=== PATIENT | male | born 1950 | race Caucasian/White ===

== ENCOUNTER 2025-01-08 09:05 | Observation (INO) ==
--- NOTE | 2025-01-02 10:46 | Anesthesiology Consultation ---
Date of Service January 02, 2025 Assessment & Plan Chart Review Chart Review: Acceptable Risk for Surgery and Patient NOT seen in Pre Admission Testing -BMP to be repeated AM of surgery Infectious Disease screening: Per PAT nursing assessment on 12/28/24, No known infectious disease contacts in past 10 days or current infectious disease symptoms. No recent travel outside the country. History Surgery Operation Date: 01/08/25 13:20 Proposed Procedures p Cystolithopaxy - Zeus Rodriguez MD s Transurethral Resection Prostate - Zeus Rodriguez MD Height/Weight Height: 5 ft 8 in Weight: 82.554 kg Allergies Allergy/AdvReac Type Severity Reaction Status Date / Time atorvastatin Allergy Mild SOB, FAST Verified 12/28/24 15:04 HEART AT BEDTIME naproxen Allergy Mild SOB, FAST Verified 12/28/24 15:04 HEART BEAT AND WOULD WAKE UP AT NIGHT pravastatin Allergy Mild SOB, FAST Verified 12/28/24 15:04 HEART BEAT -IT WOULD WAKE HIM UP AT NIGHT hay fever Allergy Intermediate Uncoded 12/28/24 15:04 Medications Home Medications Medication Instructions Recorded Confirmed Last Taken aspirin 81 mg capsule 81 mg PO DAILY 01/02/24 12/28/24 Unknown coQ10 (ubiquinol) 100 mg capsule 100 mg PO DAILY 01/02/24 12/28/24 Unknown (Qunol Delbert CoQ10) losartan 25 mg tablet 25 mg PO HS 01/02/24 12/28/24 Unknown omega 4-yvn-vpw-fish oil 300 1 cap PO BID 01/02/24 12/28/24 Unknown mg-1,000 mg capsule (Fish Oil) doxycycline hyclate 20 mg tablet 20 mg PO BID PRN tick bites 10/09/24 12/28/24 Unknown rosuvastatin 10 mg tablet 10 mg PO HS 10/09/24 12/28/24 Unknown vitamin K2 100 mcg capsule 100 mcg PO HS 10/09/24 12/28/24 Unknown acetaminophen 500 mg tablet 500 mg PO Q6H PRN Pain 12/28/24 12/28/24 Unknown amoxicillin 500 mg tablet 2,000 mg PO UD PRN dental 12/28/24 12/28/24 Unknown procedures cetirizine 10 mg tablet 10 mg PO DAILY PRN Allergy Symptoms 12/28/24 12/28/24 Unknown cholecalciferol (vitamin D3) 25 25 mcg PO Q2D 12/28/24 12/28/24 Unknown mcg (1,000 unit) capsule (Vitamin D3) cholecalciferol (vitamin D3) 50 100 mcg PO HS 12/28/24 12/28/24 Unknown mcg (2,000 unit) capsule (Vitamin D3) cyanocobalamin (vitamin B-12) 1,000 mcg PO DAILY 12/28/24 12/28/24 Unknown 1,000 mcg tablet (Vitamin B-12) febuxostat 40 mg tablet (Uloric) 40 mg PO QAM 12/28/24 12/28/24 Unknown gemfibrozil 600 mg tablet 600 mg PO BID 12/28/24 12/28/24 Unknown Past Medical History Medical History (Updated 01/02/25 @ 10:40 by Hailee Brown PA-C) Brain fog ~2019, "evaluated in the ER a couple times for this, within 3 week period, found to be from dehydration" Calcium nephrolithiasis hx CKD (chronic kidney disease), stage III Enlarged prostate History of hypertension Hx of acute renal failure ~2015, "due to urinary retention from his enlarged prostate"; resolved with TURP; following with urology Hx of gout Hx of hyperlipidemia statin intolerance MGUS (monoclonal gammopathy of unknown significance) (per nephro note) Prediabetes diet controlled; has lost almost 20lb since 08/2024 Slow to wake up after anesthesia ~2014, [facility], "felt extremely groggy and had a hard time waking up" Past Surgical History Surgical History (Updated 01/02/25 @ 10:40 by Hailee Brown PA-C) History of colonoscopy Hx of knee surgery left knee, to removed "floating cartilege" Hx of tonsillectomy age 3 Hx of transurethral resection of prostate ~2015, [facility] Social History Smoking Status: Never smoker Do You Dip or Chew Tobacco: No Hx Alcohol Use: Yes (none for years) Hx Substance Use: No substance use type: does not use Lab Results Anesthesia Preop Results Results Anesthesia Widget: Urine Appearance Clear 12/06/24 Testing Laboratory Results 12/27/24: WBC: 5.78 H/H: 14.1/42.0 PLATELETS: 292 SODIUM: 142 POTASSIUM: 3.5 CHLORIDE: 110 CO2: 26.1 BUN: 27.7(H) CREATININE: 1.82(H) GLUCOSE: 132 eGFR: 38(L) 12/06/24: UA: -nitrite, trace LE urine culture: no growth Electrocardiogram Date: 12/24/24 Findings: + SB @ (54bpm) Chest X-Ray Date: 12/24/24 Findings: + NAD
[2025-01-08] MEDS: LR 15ML/HR IV SCH (09:35)
[2025-01-08 10:13] LABS: Anion Gap 12.0 (3-11); Blood Urea Nitrogen 35.0 mg/dl (6-23); Calcium 10.4 mg/dl (8.6-10.3); Carbon Dioxide 21.0 mmol/L (21-32); Chloride 112.0 mmol/L (98-107); Creatinine Clr Calc Pharmacy 30.9 ml/min; Glucose 121.0 mg/dl (70-99(Fasting)); Potassium 3.7 mmol/L (3.5-5.1); Sodium 145.0 mmol/L (136-145)
[2025-01-08] MEDS ORDERED: DEXAMETHASONE SOD INJ 4 MG/ML VIAL ONE (10:13)
[2025-01-08] MEDS ORDERED: PROPOFOL IV EMULSION 10 MG/ML 20 ML VIAL IV ONE (10:13)
[2025-01-08] MEDS ORDERED: ONDANSETRON INJ 2 MG/ML 2 ML VIAL ONE (10:13)
[2025-01-08] MEDS ORDERED: MIDAZOLAM HCL 1 MG/ML 2ML VIAL ONE (10:13)
[2025-01-08] MEDS ORDERED: LIDOCAINE 2% 2 ML VIAL/AMP(20MG/ML) INFIL ONE (10:13)
[2025-01-08] MEDS ORDERED: ONDANSETRON INJ 2 MG/ML 2 ML VIAL IV PRN (10:39)
[2025-01-08] MEDS ORDERED: ATROPINE SULFATE 0.1 MG/ML 10ML SYR IV PRN (10:39)
--- NOTE | 2025-01-08 10:44 | History & Physical Report ---
Date of Service January 08, 2025 Assessment & Plan (1) Urinary retention due to benign prostatic hyperplasia: (2) Bladder calculi: Plan Cystolithalopaxy and TURP risks, benefits, and expectations reviewed History of Present Illness Primary Care Provider: Alec Tamayo, Pt with a history of prior urinary retention and associated renal failure has now developed bladder calculi and some recurrent hydro presenting today to address the bladder stones and further resect his prostate Allergies Allergy/AdvReac Type Severity Reaction Status Date / Time atorvastatin Allergy Mild SOB, FAST Verified 01/08/25 10:05 HEART AT BEDTIME naproxen Allergy Mild SOB, FAST Verified 01/08/25 10:05 HEART BEAT AND WOULD WAKE UP AT NIGHT pravastatin Allergy Mild SOB, FAST Verified 01/08/25 10:05 HEART BEAT -IT WOULD WAKE HIM UP AT NIGHT hay fever Allergy Intermediate Uncoded 01/08/25 10:05 Home Medications Medication Instructions Recorded Confirmed Type aspirin 81 mg capsule 81 mg PO DAILY 01/02/24 01/08/25 History coQ10 (ubiquinol) 100 mg capsule 100 mg PO DAILY 01/02/24 01/08/25 History (Qunol Delbert CoQ10) losartan 25 mg tablet 25 mg PO HS 01/02/24 01/08/25 History omega 4-byp-bew-fish oil 300 1 cap PO BID 01/02/24 01/08/25 History mg-1,000 mg capsule (Fish Oil) doxycycline hyclate 20 mg tablet 20 mg PO BID PRN tick bites 10/09/24 01/08/25 History rosuvastatin 10 mg tablet 10 mg PO HS 10/09/24 01/08/25 History vitamin K2 100 mcg capsule 100 mcg PO HS 10/09/24 01/08/25 History acetaminophen 500 mg tablet 500 mg PO Q6H PRN Pain 12/28/24 01/08/25 History amoxicillin 500 mg tablet 2,000 mg PO UD PRN dental 12/28/24 01/08/25 History procedures cetirizine 10 mg tablet 10 mg PO DAILY PRN Allergy Symptoms 12/28/24 01/08/25 History cholecalciferol (vitamin D3) 25 25 mcg PO Q2D 12/28/24 01/08/25 History mcg (1,000 unit) capsule (Vitamin D3) cholecalciferol (vitamin D3) 50 100 mcg PO HS 12/28/24 01/08/25 History mcg (2,000 unit) capsule (Vitamin D3) cyanocobalamin (vitamin B-12) 1,000 mcg PO DAILY 12/28/24 01/08/25 History 1,000 mcg tablet (Vitamin B-12) febuxostat 40 mg tablet (Uloric) 40 mg PO QAM 12/28/24 01/08/25 History gemfibrozil 600 mg tablet 600 mg PO BID 12/28/24 01/08/25 History Past Med/Surg History Problem List (Updated 01/08/25 @ 10:44 by Zeus Rodriguez MD) Bladder calculi Elevated PSA Calcium nephrolithiasis Urinary retention due to benign prostatic hyperplasia Medical History (Updated 01/08/25 @ 10:44 by Zeus Rodriguez MD) MGUS (monoclonal gammopathy of unknown significance) (per nephro note) CKD (chronic kidney disease), stage III Prediabetes diet controlled; has lost almost 20lb since 08/2024 Hx of acute renal failure ~2015, "due to urinary retention from his enlarged prostate"; resolved with TURP; following with urology Brain fog ~2019, "evaluated in the ER a couple times for this, within 3 week period, found to be from dehydration" Slow to wake up after anesthesia ~2014, [facility], "felt extremely groggy and had a hard time waking up" Hx of hyperlipidemia statin intolerance History of hypertension Hx of gout Enlarged prostate Calcium nephrolithiasis hx Surgical History History of colonoscopy Hx of tonsillectomy age 3 Hx of knee surgery left knee, to removed "floating cartilege" Hx of transurethral resection of prostate ~2015, [facility] Social History Smoking Status: Never smoker Second Hand Exposure: Yes (hx in the 40 years ago); Do You Dip or Chew Tobacco: No; Tobacco Cessation Education Requested by Patient: No Hx Alcohol Use: Yes (none for years) Hx Substance Use: No Preferred Language: German Communication Ability: Effective Clip Loading Machine Adjuster Required: No Beliefs That Will Affect Care: None Current Living Situation: Alone Other Information That Helps Us Care for You: No Feels Safe at Home: Yes Safety Concerns: Feels Safe At This Time Assistive Devices: Denture - Lower and Glasses Assistive Devices Comment: partial lower denture; will leave glasses and partial home DOS Physical Exam Constitutional: well developed and well nourished Neck: neck nontender Respiratory: normal respiratory effort; no respiratory distress and does not use accessory muscles Cardiovascular: Rate/Rhythm: regular rate Vessels: radial pulses present Extremities: no edema Gastrointestinal (Abdomen): Inspection/Auscultation: abdomen normal to inspection Percussion/Palpation: abdomen soft; abdomen nontender and no guarding Musculoskeletal: Head/Neck/Chest: normocephalic and head atraumatic Extremities: extremities normal to inspection Skin: no rashes and no lesions Trauma: no evidence of skin trauma Neurologic: awake; not obtunded Speech / Cognition: normal speech Motor/Sensory: no tremor Psychiatric: Orientation: alert and oriented x 3 Genitourinary: no CVA tenderness Lymphatic: no lymphadenopathy Results & Data Vital Signs (Past 12 Hours) Vital Signs Temp Pulse Resp BP Pulse Ox O2 Del Method 01/08/25 09:56 36.7 C 64 20 150/97 H 97 Room Air
[2025-01-08] MEDS: CIPROFLOXACIN / D5W 400 MG/200 ML BAG IV SCH ×2 (11:03→23:09)
--- NOTE | 2025-01-08 12:35 | Operative Report ---
PG Post Operative Report Pre & Post Diagnosis Operation Date: 01/08/25 10:50 Pre-Op Diagnosis: 1. Urinary retention due to benign prostatic hyperplasia 2. Bladder calculi Post-Op Diagnosis: 1. Urinary retention due to benign prostatic hyperplasia 2. Bladder calculi I identified the patient and participated in the time-out.: Yes Procedure Operation Date: 01/08/25 10:50 Actual Procedures p Cystolithopaxy(Not Applicable) - Zeus Rodriguez MD s Transurethral Resection Prostate(Not Applicable) - Zeus Rodriguez MD Surgeon Zeus Rodriguez MD Home Theater Specialist none Estimated Blood Loss 10 Findings Consistent with Post-Op Diagnosis Specimens 1. Bladder calculi for chemical analysis 2. Prostate chips for pathology Description of Procedure The patient was identified in the preoperative holding area, appropriate informed consents were reviewed and completed and the patient was transferred to the operative suite. Upon arrival, appropriate antibiotics and anesthesia were administered and the patient was placed in dorsal lithotomy position and prepped and draped in sterile fashion. Began the case to pass a 26 Cuban resectoscope with 30 degree lens and visual obturator. Inspection revealed a healthy appearing urethra and enlarged prostate with lateral lobe obstruction and some oozing vessels at the anterior aspect of the bladder neck. Bladder is very large in capacity and heavily trabeculated with 2 relatively large stones in the dependent portion. The largest is in excess of 2.5 cm in the second with slightly smaller likely 1 to 1.5 cm. Ureteral orifices were identified and healthy in appearance. I then passed a 365 m laser fiber and began lasering the stones until they were small enough to irrigate free of the bladder. I collected specimen and passed off the table for chemical analysis. I then returned to the bladder but chose a loop electrode and began resection of the prostatic tissue beginning at the anterior aspect and progressing to the left and right lateral lobes. Of note, there was relatively large cavity in the right side of the prostate which likely represents an old cyst or abscess. He was relatively inflamed and there was oozing from the prostate uniformly as I was resecting. The conclusion of the case was able to achieve excellent hemostasis and irrigate all chips free of the bladder. A 22 Cuban Reyes catheter was inserted with 30 cc sterile water placed in the balloon. Prostate chips were collected and passed off the table for pathology. There were no complications. I attest to the content of the Intraoperative Record and any orders documented therein. Any exceptions are noted below.
[2025-01-08] MEDS ORDERED: DexMEDEtomidine HCL IV 100 MCG/ML VIAL IV ONE (12:51)
--- NOTE | 2025-01-08 13:11 | Anesthesiology Progress Note ---
Date of Service January 08, 2025 Anesthesia Post Procedure Vital Signs Vital Signs: Temp Pulse Pulse Resp BP Pulse Ox O2 Del Method 01/08/25 13:00 62 16 148/96 H 96 Room Air 01/08/25 12:50 62 18 157/97 H 96 Room Air 01/08/25 12:40 65 15 151/94 H 96 Oxymask 01/08/25 12:30 68 13 144/91 H 96 Oxymask 01/08/25 12:23 97.0 F L 72 15 153/95 H 90 Oxymask 01/08/25 09:56 98.1 F 64 20 150/97 H 97 Room Air O2 Flow Rate 01/08/25 13:00 01/08/25 12:50 01/08/25 12:40 2 01/08/25 12:30 7 01/08/25 12:23 7 01/08/25 09:56 Transfer of Care Handoff Completed per policy Notes Mental Status: alert / awake / arousable and participated in evaluation Patient Amnestic to Procedure: Yes Nausea / Vomiting: adequately controlled Pain: adequately controlled Airway Patency, RR, SpO2: stable & adequate BP & HR: stable & adequate Hydration State: stable & adequate Anesthetic Complications: no major complications apparent and Pt Satisfied with anesthetic care
--- NOTE | 2025-01-08 13:45 | Anesthesiology Progress Note ---
Date of Service January 08, 2025 Anesthesia Post Procedure Vital Signs Vital Signs: Temp Pulse Pulse Resp BP Pulse Ox O2 Del Method 01/08/25 13:40 96.8 F L 60 14 161/94 H 100 Room Air 01/08/25 13:30 61 13 170/100 H 94 Room Air 01/08/25 13:20 60 169/105 H 01/08/25 13:15 62 172/105 H 01/08/25 13:10 60 18 162/101 H 98 Room Air 01/08/25 13:00 62 16 148/96 H 96 Room Air 01/08/25 12:50 62 18 157/97 H 96 Room Air 01/08/25 12:40 65 15 151/94 H 96 Oxymask 01/08/25 12:30 68 13 144/91 H 96 Oxymask 01/08/25 12:23 97.0 F L 72 15 153/95 H 90 Oxymask 01/08/25 09:56 98.1 F 64 20 150/97 H 97 Room Air O2 Flow Rate 01/08/25 13:40 01/08/25 13:30 01/08/25 13:20 01/08/25 13:15 01/08/25 13:10 01/08/25 13:00 01/08/25 12:50 01/08/25 12:40 2 01/08/25 12:30 7 01/08/25 12:23 7 01/08/25 09:56 Transfer of Care Handoff Completed per policy Notes Mental Status: alert / awake / arousable and participated in evaluation Patient Amnestic to Procedure: Yes Nausea / Vomiting: adequately controlled Pain: adequately controlled Airway Patency, RR, SpO2: stable & adequate BP & HR: stable & adequate Hydration State: stable & adequate Anesthetic Complications: no major complications apparent and Pt Satisfied with anesthetic care
[2025-01-08] MEDS ORDERED: ACETAMINOPHEN 500 MG TAB PO PRN (14:02)
[2025-01-08] MEDS: SODIUM CHLORIDE 0.9% 500 ML IV SCH (14:43)
[2025-01-08 15:41] LABS: Hematocrit (blood only) 39.1 % (42.0-52.0); Hemoglobin 13.0 g/dL (14.0-18.0); Mean Corpuscular Hemoglobin 29.4 pg (25.0-34.0); Mean Corpuscular Volume 88.5 fL (80.0-100.0); Platelet Count 254 K/uL (130-400); RDW Standard Deviation 42.1 fL (36.4-46.3); Red Blood Count 4.42 M/uL (4.70-6.10); White Blood Count 7.06 K/ul (4.8-10.8)
[2025-01-08 15:56] LABS: Anion Gap 9.0 (3-11); Blood Urea Nitrogen 33.0 mg/dl (6-23); Calcium 9.4 mg/dl (8.6-10.3); Carbon Dioxide 22.0 mmol/L (21-32); Chloride 113.0 mmol/L (98-107); Creatinine Clr Calc Pharmacy 31.3 ml/min; Glucose 135.0 mg/dl (70-99(Fasting)); Potassium 3.8 mmol/L (3.5-5.1); Sodium 144.0 mmol/L (136-145)
[2025-01-08] MEDS: LOSARTAN POTASSIUM 25 MG TAB PO SCH (20:55)
[2025-01-08] MEDS: ROSUVASTATIN CALCIUM 10 MG TAB PO SCH (20:55)
[2025-01-09 03:45] VITALS: TEMP 97.7
[2025-01-09 07:28] LABS: Hematocrit (blood only) 31.3 % (42.0-52.0); Hemoglobin 10.6 g/dL (14.0-18.0); Mean Corpuscular Hemoglobin 29.8 pg (25.0-34.0); Mean Corpuscular Volume 87.9 fL (80.0-100.0); Platelet Count 231 K/uL (130-400); RDW Standard Deviation 41.9 fL (36.4-46.3); Red Blood Count 3.56 M/uL (4.70-6.10); White Blood Count 11.16 K/ul (4.8-10.8)
[2025-01-09 07:51] LABS: Anion Gap 8.0 (3-11); Blood Urea Nitrogen 32.0 mg/dl (6-23); Calcium 8.5 mg/dl (8.6-10.3); Carbon Dioxide 21.0 mmol/L (21-32); Chloride 109.0 mmol/L (98-107); Creatinine Clr Calc Pharmacy 31.5 ml/min; Glucose 99.0 mg/dl (70-99(Fasting)); Potassium 3.6 mmol/L (3.5-5.1); Sodium 138.0 mmol/L (136-145)
[2025-01-09 07:56] VITALS: BP 107/65; PULSE 60; RESP 16; O2SAT 97
--- NOTE | 2025-01-09 08:26 | Urology Progress Note ---
Date of Service January 09, 2025 Assessment & Plan (1) Bladder calculi: (2) Urinary retention due to benign prostatic hyperplasia: Plan Postop day #1 status post TURP and litholapaxy Doing well Did have some hematuria that required clot irrigation yesterday but seems to have cleared appropriately Creatinine slightly improved today from presurgical valueshope to see further improvement with time Plan for voiding trial now and discharge home Admission and Anticipated Discharge Date Admission Date: January 08, 2025 Subjective 74-year-old progressing appropriately with postop day #1 after TURP and cystolitholapaxy Did require irrigation once overnight Urine is progressively clearing Certainly much clearer than it was yesterday and he subjectively feels very well, no pain or other complaints Results & Data Vital Signs (Past 12 Hours) Vital Signs Temp Pulse Resp BP Pulse Ox O2 Del Method 01/09/25 07:06 36.5 C 60 16 107/65 97 Room Air 01/09/25 03:45 36.5 C 58 L 18 103/62 99 Room Air 01/08/25 22:58 36.7 C 64 18 133/79 97 Room Air PG Care Time/CCT Total # of Minutes Spent Total Time Spent with Patient: Total time spent is greater than 50% in coordination of care (as documented) at patient's floor/unit and/or counseling patient: Coding Level of Care Code None Diagnoses Bladder calculi N21.0 Urinary retention due to benign prostatic hyperplasia N40.1; R33.8
--- NOTE | 2025-01-10 11:48 | Discharge Summary ---
Date of Service January 10, 2025 Admission HPI Per Admitting Provider Pt with a history of prior urinary retention and associated renal failure has now developed bladder calculi and some recurrent hydro presenting today to address the bladder stones and further resect his prostate Admission Exam Per Admitting Provider Constitutional: well developed and well nourished Neck: neck nontender Respiratory: normal respiratory effort; no respiratory distress and does not use accessory muscles Cardiovascular: Rate/Rhythm: regular rate Vessels: radial pulses present Extremities: no edema Gastrointestinal (Abdomen): Inspection/Auscultation: abdomen normal to inspection Percussion/Palpation: abdomen soft; abdomen nontender and no guarding Musculoskeletal: Head/Neck/Chest: normocephalic and head atraumatic Extremities: extremities normal to inspection Skin: no rashes and no lesions Trauma: no evidence of skin trauma Neurologic: awake; not obtunded Speech / Cognition: normal speech Motor/Sensory: no tremor Psychiatric: Orientation: alert and oriented x 3 Genitourinary: no CVA tenderness Lymphatic: no lymphadenopathy Principal Diagnosis BPH with urinary retention; Bladder calculi Discharge Exam Constitutional well developed and well nourished; no acute distress Respiratory normal respiratory effort; no respiratory distress and no labored breathing Musculoskeletal Head/Neck/Chest: normocephalic Skin no rashes, warm and dry Neurologic moves all extremities and awake Psychiatric A+Ox3, euthymic affect Discharge Data Allergies Allergy/AdvReac Type Severity Reaction Status Date / Time atorvastatin Allergy Mild SOB, FAST Verified 01/08/25 10:05 HEART AT BEDTIME naproxen Allergy Mild SOB, FAST Verified 01/08/25 10:05 HEART BEAT AND WOULD WAKE UP AT NIGHT pravastatin Allergy Mild SOB, FAST Verified 01/08/25 10:05 HEART BEAT -IT WOULD WAKE HIM UP AT NIGHT hay fever Allergy Intermediate Uncoded 01/08/25 10:05 Procedures Performed Operation Date: 01/08/25 10:50 Actual Procedures p Cystolithopaxy(Not Applicable) - Zeus Rodriguez MD s Transurethral Resection Prostate(Not Applicable) - Zeus Rodriguez MD Hospital Course (1) Bladder calculi: (2) Urinary retention due to benign prostatic hyperplasia: Plan 74-year-old male admitted status post Cystolithalopaxy and TURP with Dr. Rodriguez. Patient tolerated procedure well. No acute issues postoperatively. Remained afebrile and hemodynamically stable. Labs appropriate. Reported minimal pain. Ambulated without issue. Tolerated a diet. Reyes catheter removed on postop day #1. Patient was able to void following catheter removal. Patient discharged home on postop day #1 in stable condition. Discharge instructions were reviewed and all questions were answered. Total Time Total Time Spent Total Time Spent (In Minutes): 15 Discharge Plan Discharge Items Patient Disposition: Home - Self-Care Reason For Visit: BPH Lower Urinary tract symptoms, other retention Discharge Diagnosis: BPH with urinary retention; Bladder calculi Condition on Discharge: Good Activity: Per Instructions section Non-emergency contact: Surgeon and Urologist Call non-emergency contact if: you have any medication questions, your symptoms worsen, your pain is not controlled and you have a fever Follow-up/Referrals: Zeus Rodriguez MD [Physician] - Alec Tamayo DO [Primary Care Provider] - 01/14/25 11:20 am Diet: Regular Addtl Attending Provider Instructions: Please take all medications as prescribed and keep all follow-ups as scheduled. Please call our office at [phone] with any questions, concerns or need to reschedule appointments for any reason. We are happy to assist you. An antibiotic (Bactrim) has been sent to your pharmacy. Please start on 01/10 and take as directed. You may resume aspirin on Tuesday (01/14) if urine is clear to light pink. Please contact the urology office with any questions or concerns. Tips for your recovery at home: Dont be alarmed by brownish or reddish blood or clots in your urine. This is a result of the procedure. This may occur off and on for weeks to months after the procedure but should continue to improve. Drink plenty of fluids during the day (enough to keep your urine very light colored). This will help keep a healthy flow of urine. Do not lift >25 lbs until your followup Avoid constipation. Please use a stool softener (Colace) for the first two weeks after your procedure if needed. Be sure to finish the antibiotics as prescribed. When to call [facility] at [phone]: Your urine contains heavy blood clots and/or you are unable to urinate You are constantly leaking urine Fever of 101F or higher, chills, nausea, or vomiting Your pain is not relieved with medication Pending Studies at Discharge: Yes (pathology) Stand-Alone Forms: [facility], Smoking Cessation Medications and DC Order Prescriptions: New sulfamethoxazole-trimethoprim [Bactrim] 400-80 mg tablet 1 tab PO BID 3 Days Qty: 6 0RF Continued coQ10 (ubiquinol) [Qunol Delbert CoQ10] 100 mg capsule 100 mg PO DAILY losartan 25 mg tablet 25 mg PO HS omega 9-mox-urz-fish oil [Fish Oil] 300-1,000 mg capsule 1 cap PO BID aspirin 81 mg capsule 81 mg PO DAILY rosuvastatin 10 mg tablet 10 mg PO HS vitamin K2 100 mcg capsule 100 mcg PO HS doxycycline hyclate 20 mg tablet 20 mg PO BID PRN (Reason: tick bites) Rx Instructions: as needed for tick bites cetirizine 10 mg Tablet 10 mg PO DAILY PRN (Reason: Allergy Symptoms) cyanocobalamin (vitamin B-12) [Vitamin B-12] 1,000 mcg Tablet 1,000 mcg PO DAILY acetaminophen 500 mg Tablet 500 mg PO Q6H PRN (Reason: Pain) amoxicillin 500 mg Tablet 2,000 mg PO UD PRN (Reason: dental procedures) gemfibrozil 600 mg Tablet 600 mg PO BID cholecalciferol (vitamin D3) [Vitamin D3] 25 mcg (1,000 unit) Capsule 25 mcg PO Q2D cholecalciferol (vitamin D3) [Vitamin D3] 50 mcg (2,000 unit) Capsule 100 mcg PO HS febuxostat [Uloric] 40 mg Tablet 40 mg PO QAM Discharge Orders: Discharge Order (Routine); Ordered 01/09/25 Ordered By: Hilaria Nguyễn/Other Patient Handouts: DVT Post Op Prevention, TURP Home Recovery Admission Data Admit Date/Time: 01/08/25 12:32 Attending Provider: Zeus Rodriguez Admit Provider: Zeus Rodriguez Primary Care Provider: Alec Tamayo Other Interventions: Discharge Summary Assessment (RN) Last Done: 01/09/25 14:49 Coding Level of Care Code 07270 IN/OBS DISCH 30 MIN/LESS Diagnoses Bladder calculi N21.0 Urinary retention due to benign prostatic hyperplasia N40.1; R33.8
== END 2025-01-09 15:30 | disposition home or self-care (01) ==
LOC: ASU 09:05 → 3N 09:05
DX: Z77.22 Contact with and (suspected) exposure to environmental tobacco smoke (acute) (chronic); N40.1 Benign prostatic hyperplasia with lower urinary tract symptoms; N21.0 Calculus in bladder; Z91.09 Other allergy status, other than to drugs and biological substances; Z88.6 Allergy status to analgesic agent; Z79.82 Long term (current) use of aspirin; R33.8 Other retention of urine; Z79.899 Other long term (current) drug therapy; Z88.8 Allergy status to other drugs, medicaments and biological substances